=== PATIENT | male | born 1990 | race Two or more races ===

== ENCOUNTER 2024-06-30 15:57 | Emergency (ER) | payer MEDICAID, SELFPAY ==
[2024-06-30 16:52] VITALS: BP 125/81; PULSE 63; RESP 18; TEMP 37.8; O2SAT 98; BMI 31.3
--- NOTE | 2024-06-30 16:58 | XR_ITS ---
Examination: PA lateral chest 2 views Technique: Upright PA lateral chest 2 views Exam date and time: June 30, 2024 1729 hrs. Indications: Onset coughing today Findings: Normal heart size Lungs are clear. Osseous structures are intact Impression: No active disease
--- NOTE | 2024-06-30 17:57 | PD.EDRECHK ---
ED Recheck Abnl Lab Rx-RME/HPI General Chief Complaint: Recheck/Abnormal Lab/Rx Stated Complaint: TESTED POSITIVE FOR TB AT [facility] Time Seen by Provider: 06/30/24 16:20 Source: patient Arrival date/time: 06/30/24 15:57 This is a 33-year-old male who presented to the emergency department with complaints of a positive skin test TB test at a clinic in [place]. He was sent over to emergency department for rule out TB. Patient reports he is staying at a drug rehab center and was sent for testing. Patient does not have any fever, chest pain, cough no hemoptysis. Patient does report that he was born in [place] and had the BcBG vaccine. Mode of arrival: ambulatory Related Data Previous Rx's ?Medication ?Instructions ?Recorded Sulfamethoxazole/Trimethoprim DS * 1 tab PO BID #20 tabs 05/16/16 (BACTRIM DS *) ibuprofen 600 mg tablet 600 mg PO Q6HR PRN PAIN #40 tabs 05/16/16 Allergies Allergy/AdvReac Type Severity Reaction Status Date / Time NKA* Allergy Uncoded 06/30/24 16:00 Review of Systems Review of Systems Systems Reviewed: All systems reviewed, normal except as documented Narrative Review of Systems: Gen: No fever, no chills, no weight loss EYES: No discharge, no visual changes, no pain HEENT: No ear pain, no congestion, no sore throat PULM: No shortness of breath, no cough, no congestion CV: No chest pain, no dyspnea on exertion, no palpitations GI: No nausea, no vomiting, no diarrhea, no pain, no constipation : No frequency, no urgency,? no dysuria Musc/skel: No joint pain, no back pain Skin: No rash? ED Exam Narrative Physical exam: General: Sittiing in Exam table in no acute distress, answering questions appropriately HENT: normocephalic, atraumatic, EOMI, PERRLA, moist mucous membranes Chest: chest wall is nontender Cardiac: regular rate and rhythm, normal S1 and S2, no murmurs, rubs, or gallops, capillary refill ?2 seconds Pulmonary: clear to auscultation bilaterally, no wheezing, crackles, or rhonchi Abdominal: active bowel sounds, soft, nontender, nondistended Neuro: A&OX3, CN II-XII intact, sensation grossly intact bilaterally in UE and LE. Skin:+ Indurated lesion noted to right forearm, no ecchymosis Ext: no lower extremity edema Course Quality Measures none Orders Category Date Time Status XR chest 2V Stat Exams 06/30/24 16:58 Completed Vital Signs Vital signs: Vital Signs Temperature 100.1 F 06/30/24 16:52 Pulse Rate 63 06/30/24 16:52 Respiratory Rate 18 06/30/24 16:52 Blood Pressure 125/81 06/30/24 16:52 Pulse Oximetry (%) 98 06/30/24 16:52 Oxygen Delivery Method Room Air 06/30/24 16:52 Recheck / Abnormal Lab / Rx MDM Narrative MDM Narrative:: 33-year-old male who presents to the emergency department with a positive skin TB test. Patient is asymptomatic was sent over for chest x-ray to rule out any TB lesions. Chest x-ray was completely negative. I did advise patient that he needs not to have a TB skin test again because there is history of a BCBG vaccine in the past. Advised that he will always have a positive TB tuberculin test. Patient data External records reviewed:: [facility] previous records Clinical information provided by:: patient Social determinants that could affect healthcare access:: none Patient has the following chronic illnesses:: no How is presenting disease/condition affected by chronic disease/condition?: no chronic disease Evaluation data The following diagnostics were reviewed and interpreted by me:: radiology exam(s) Lab and/or radiology exams considered but not ordered:: no Interpretation Summary: Examination: PA lateral chest 2 views Technique: Upright PA lateral chest 2 views Exam date and time: June 30, 2024 1729 hrs. Indications: Onset coughing today Findings: Normal heart size Lungs are clear. Osseous structures are intact Impression: No active disease Medications / Prescriptions Medications or Prescriptions considered but not ordered:: no Medication administrations:: no Consultations Consultation(s) initiated? (list below): No Diagnosis Recheck Differential Diagnosis: encounter for medication refill, encounter for wound recheck, encounter for recheck of burn and encounter for removal of sutures Most likely diagnosis given after review of the tests above:: Encounter for TB testing Admission Indicated Admission indicated?: not indicated Admission Request Was there a request for admission?: No Disposition Plan Disposition Plan: Discharge Discharge Attestation Discharge Attestation: The patient and all family members were given an opportunity to ask questions and understood the discharge instructions. Discharge instructions specifically effects, indications for sooner follow up or return to the emergency department, and the expected course of current diagnosis. Patient condition: Stable Discharge Plan Plan Patient Disposition: HOME (Self Care) Patient condition on transfer: Stable Prescriptions/Referrals Prescriptions/Med Rec: No Action ibuprofen 600 MG tablet 600 mg PO Q6HR PRN (Reason: PAIN) Qty: 40 0RF Sulfamethoxazole/Trimethoprim DS * (BACTRIM DS *) 1 TAB tablet 1 tab PO BID Qty: 20 0RF Referrals: No Primary/Family,Physician [Primary Care Provider] - In 1 week Problem List Clinical Impression: Abnormal diagnostic test result Patient/Caregiver Discharge Instructions Discharge Activity: activity as tolerated Additional Instructions: Please follow-up with the [facility] office Further testing. When a patient has the BCG vaccine a TB skin test can falsely be positive. Please follow-up with your primary doctor Return to the emergency department this any worsening symptoms change in condition. Print Language: Syriac Stand Alone Forms: [facility] Award Info., Patient Portal Info Letter PA/FULL ST[employer] WE[employer] DEVELOPER Supervising Physician ERIKA/DARLYN Supervising Physician: Dr. Baird
== END 2024-06-30 19:16 | disposition home or self-care (01) ==
PROVIDERS: Emergency Provider Emergency Medicine
DX: R76.11 Nonspecific reaction to tuberculin skin test without active tuberculosis (principal)
CPT/HCPCS: 71046; 99283